=== PATIENT | female | born 1950 | race Caucasian/White ===

== ENCOUNTER 2025-02-22 09:30 | Day surgery (SDC) | payer OTHER ==
[2025-02-19 09:06] LABS: BASOPHILS % (AUTO) 0.6 % (0-1); EOSINOPHILS # (AUTO) 0.2 X10'3 (0-0.9); EOSINOPHILS % (AUTO) 2.1 % (0-6); HEMATOCRIT 38.1 % (35.0-45.0); HEMOGLOBIN 12.8 g/dl (12.0-16.0); LYMPHOCYTES # (AUTO) 3.5 X10'3 (1.1-4.8); LYMPHOCYTES % (AUTO) 46.1 % (21-51); MEAN CORPUSCULAR HEMOGLOBIN 30.8 PG (27.0-31.0); MEAN CORPUSCULAR HGB CONC 33.7 g/dL (33.0-36.5); MEAN CORPUSCULAR VOLUME 91.5 FL (78-98); MEAN PLATELET VOLUME 9.3 FL (7.4-10.4); MONOCYTES # (AUTO) 0.7 X10'3 (0-0.9); MONOCYTES % (AUTO) 8.6 % (2-12); NEUTROPHILS # (AUTO) 3.2 X10'3 (1.8-7.7); NEUTROPHILS % (AUTO) 42.6 % (42-75); PLATELET COUNT 168 X10'3 (140-440); RED BLOOD COUNT 4.16 X10'6 (4.20-5.60); RED CELL DISTRIBUTION WIDTH 14.7 % (11.5-14.5); WHITE BLOOD COUNT 7.6 X10'3 (4.5-11.0)
[2025-02-19 09:18] LABS: APTT 39 SECONDS (22-32); INR 1.2 INR; PROTHROMBIN TIME 12.4 SECONDS (9.0-12.0)
[2025-02-19 09:23] LABS: ALBUMIN 3.4 G/DL (3.4-5.0); ANION GAP 11 (8-16); BLOOD UREA NITROGEN 14 MG/DL (7-18); BUN/CREATININE RATIO 20.3 (10.0-20.0); CALCIUM 8.4 MG/DL (8.5-10.1); CHLORIDE 105 MMOL/L (99-107); CHOL/HDL RATIO 2.9 (0.00-4.99); CHOLESTEROL 177 MG/DL (0-200); CREATININE 0.69 MG/DL (0.40-0.90); GLUCOSE 113 MG/DL (70-104); HDL CHOLESTEROL 62 MG/DL (35-60); LDL CHOLESTEROL 103 MG/DL (50-100); POTASSIUM 3.8 MMOL/L (3.5-5.1); SODIUM 140 MMOL/L (135-145); TOTAL CARBON DIOXIDE 24.1 MMOL/L (24-32); TRIGLYCERIDES 43 MG/DL (20-135); eGFR 84 ML/MIN
[2025-02-22] VITALS (11 sets, daily range): BP systolic 126–163; BP diastolic 54–99; PULSE 55–92; RESP 14–16; TEMP 97.9; O2SAT 94–98
[~2025-02-22] VITALS: Ht 170.2 cm; Wt 133.5 kg
[2025-02-22] MEDS ORDERED: LATA2.5D14 EACHEYE (09:50)
[2025-02-22] MEDS ORDERED: DABI150C PO (09:51)
[2025-02-22] MEDS ORDERED: DILT120T3 PO (09:51)
[2025-02-22] MEDS: MIDAZolam 1mg/ml 10ml vial IV ONE (12:51)
[2025-02-22] MEDS: fentaNYL/PF 50MCG/1 ML 2ML syringe IV ONE (12:52)
[2025-02-22] MEDS: normal saline 1000ml 1,000 ML IV SCH (12:52)
--- NOTE | 2025-02-22 13:16 | ELECTROCARDIOGRAPH REPORT ---
[facility] Test Date: 2025-02-22 Test Time: 13:01:33 Pat Name: KENDAL GRAMAJO Department: SHORT STAY 1ST FLOOR Patient ID: [facility]-[id number] Room: Gender: F Health Care Coach: ENMANUEL : 1950 Requested By: SANTOS PAL Order Number: [id number] Reading MD: Dr. SUSAN Hernandez Measurements Intervals Matthews Rate: 68 P: 41 IA: 191 QRS: 44 QRSD: 100 T: 37 QT: 409 QTc: 436 Interpretive Statements Sinus rhythm Consider left atrial enlargement Low voltage, precordial leads Electronically Signed On 02-22-2025 13:30:[address] SUSAN Hernandez Please click the below link to view image of tracing.
--- NOTE | 2025-02-22 13:52 | PROCEDURE NOTE CC ---
Procedure Note Providers to CC CC: GIL PAL MD ~ Description Planned Procedure Cardioversion Indications Symptomatic Atrial Fibrillation Post Operative Dx: Same Type of Anesthesia Moderate Sedation. Description It was confirmed that patient has been taking oral anticoagulation without interruption for at least 4 weeks. The appropriate time-out procedure was performed including proper identification of the patient, physician, procedure, documentation, and there were no safety issues identified. The patient participated actively in this. After sedation was achieved, the patient was placed in the supine position and hands free patches were placed on their chest in the AP-lateral position. 1 synchronized cardioversion was provided at 200 Joules with conversion to normal sinus rhythm. This was confirmed on EKG. Complication: None The patient tolerated the procedure well without complications. SANTOS PAL MD February 22, 2025 13:52
== END 2025-02-22 14:00 | disposition home or self-care (01) ==
LOC: SSTAY O 09:30
PROVIDERS: ATTEND Student in an Organized Health Care Education/Training Program
DX: I48.91 Unspecified atrial fibrillation (principal); I10 Essential (primary) hypertension; I48.92 Unspecified atrial flutter; Z79.899 Other long term (current) drug therapy
CPT/HCPCS: 36415; 80048; 80061; 83695; 85025; 85610; 85730; 92960; 93005; J2250; J3010; J7030